=== PATIENT | male | born 1980 | race Hispanic/Latino ===

== ENCOUNTER 2017-04-30 08:40 | Emergency (ER) | payer SELFPAY ==
[2017-04-30 08:50] VITALS: BP 140/76
[2017-04-30 09:06] LABS: Basophils % (Auto) 0.2 % (0.0-1.8); Hematocrit 49.5 % (35.5-45.6); Hemoglobin 16.8 gm/dl (11.8-15.2); Mean Corpuscular HGB Conc 34 % (32-34); Mean Corpuscular Hemoglobin 33 pg (28-32); Mean Corpuscular Volume 98 fl (84-94); Platelet Count 243 K/mm3 (140-440); Red Blood Count 5.06 M/mm3 (3.65-5.03); Red Cell Distribution Width 13.9 % (13.2-15.2); White Blood Count 14.3 K/mm3 (4.5-11.0)
[2017-04-30 09:20] LABS: Anion Gap 27 mmol/L; BUN/Creatinine Ratio 14.16; Blood Urea Nitrogen 17 mg/dL (9-20); Carbon Dioxide 31 mmol/L (22-30); Chloride 82.2 mmol/L (98-107); Glucose 147 mg/dL (75-100); Sodium 138 mmol/L (137-145)
[2017-04-30 09:23] LABS: Potassium 2.6 mmol/L (3.6-5.0)
--- NOTE | 2017-05-02 11:19 | ED Elopement Review ---
ED Pt Elopement review - Results review Lab results: Laboratory Tests 04/30/17 04/30/17 04/30/17 08:53 08:53 08:53 WBC 14.3 H RBC 5.06 H Hgb 16.8 H Hct 49.5 H MCV 98 H MCH 33 H MCHC 34 RDW 13.9 Plt Count 243 Lymph % (Auto) 4.8 L [place] % (Auto) 10.7 H Eos % (Auto) 0.0 Baso % (Auto) 0.2 Lymph # 0.7 L [place] # 1.5 H Eos # 0.0 Baso # 0.0 Seg Neutrophils % 84.3 H Seg Neutrophils # 12.0 H Sodium 138 Potassium 2.6 L* Chloride 82.2 L Carbon Dioxide 31 H Anion Gap 27 BUN 17 Creatinine 1.2 Estimated GFR > 60 BUN/Creatinine Ratio 14.16 Glucose 147 H Calcium 10.0 Plasma/Serum Alcohol < 0.01 - Call Back decision Pt Call Back Decision: Pt to F/U with PMD
== END 2017-04-30 09:28 | disposition left against medical advice (07) ==
LOC: ED 08:40
DX: F41.0 Panic disorder [episodic paroxysmal anxiety] (principal); Z53.21 Procedure and treatment not carried out due to patient leaving prior to being seen by health care provider
CPT/HCPCS: 36415; 80048; 85025; G0480; 80320